=== PATIENT | male | born 1995 | race Caucasian/White ===

== ENCOUNTER 2016-10-20 19:16 | Emergency (ER) | payer OTHER ==
[~2016-10-20] VITALS: Ht 182.9 cm; Wt 63.5 kg
[2016-10-20 19:18] VITALS: BP 127/78; PULSE 63; RESP 14; TEMP 98.5; O2SAT 100
[2016-10-20] MEDS ORDERED: IBUPROFEN 800 MG TAB PO ONE (19:45)
[2016-10-20] MEDS ORDERED: TRAM50TA PO (19:48)
[2016-10-20] MEDS ORDERED: PERI0.126 SWISH-SPIT (19:48)
[2016-10-20] MEDS ORDERED: IBUP-232 PO (19:48)
--- NOTE | 2016-10-20 19:48 | PD ---
HPI Chief Complaint: Oral / Dental Pain or Problem Time Seen by Provider: 19:46 Travel History International Travel<30 days: No Contact w/Intl Traveler<30days: No Traveled to known affect area: No History of Present Illness HPI 21-year-old male presents to emergency department for evaluation tooth pain. Patient states the he chipped his tooth several months ago and is painful. States he does not have a dentist locally as he is visiting from [place]. Denies any trauma. No fever or chills. Pain is a constant, throbbing, 8 out of 10. Patient has no difficulty eating and drinking. He has no other symptoms to report. PFSH Past Medical History Medical History: Denies Significant Hx Tetanus Vaccination: < 5 Years Influenza Vaccination: No Past Surgical History Surgical History: No Previous Surgery Social History Alcohol Use: Yes (6 beers on the weekends) Tobacco Use: No Substance Use: No Allergies-Medications (Allergen,Severity, Reaction): Coded Allergies: No Known Allergies (Unverified , 10/20/16) Reported Meds & Prescriptions Reported Meds & Active Scripts Active Tramadol (Tramadol HCl) 50 Mg Tab 50 Mg PO Q8H PRN Ibuprofen 600 Mg Tab 600 Mg PO Q8HR PRN Peridex Liq (Chlorhexidine Gluconate (Mouth) Liq) 0.12% Soln 15 Ml SWISH-SPIT BID 14 Days Review of Systems Except as stated in HPI: all other systems reviewed are Neg Physical Exam Narrative GENERAL: Well-nourished, well-developed male patient in no acute distress SKIN: Focused skin assessment warm/dry. HEAD: Normocephalic. No erythema or edema EYES: No scleral icterus. No injection or drainage. ENT: Mucosa pink and moist. No erythema or exudates. No uvular edema. No uvular , palatal, or tonsillar deviation. Airway patent. Nasal turbinates appear normal without nasal blood, purulent drainage or septal hematoma. DENTAL: No loose teeth. The left maxillary second bicuspid is chipped. There is mild gingival erythema. No edema. No appreciable abscess.. No malocclusion. NECK: Supple, trachea midline. No JVD or lymphadenopathy. CARDIOVASCULAR: Regular rate and rhythm without murmurs, gallops, or rubs. RESPIRATORY: Breath sounds equal bilaterally. No accessory muscle use. Data Data Last Documented VS Vital Signs Date Time Temp Pulse Resp B/P Pulse Ox O2 Delivery O2 Flow Rate FiO2 10/20/16 19:18 98.5 63 14 127/78 100 Room Air Orders Ibuprofen (Motrin) (10/20/16 19:45) MDM Medical Decision Making Medical Screen Exam Complete: Yes Emergency Medical Condition: Yes Medical Record Reviewed: Yes Differential Diagnosis Dentalgia versus infiltrate versus pulpitis versus gingivitis Narrative Course 21-year-old male presents to the emergency department for evaluation dental pain. Patient is treated for pain here. Patient does not have appreciable abscess however he does have a chipped tooth. Patient is advised to seek dental evaluation. He'll be provided pain control for outpatient. He agrees to return immediately with any acute worsening of symptoms. Diagnosis Primary Impression: Dentalgia Additional Impression: Chipped tooth Qualified Code: S02.5XXA - Closed fracture of tooth, initial encounter Referrals: Dentist Primary Care Physician Patient Instructions: Dental Caries (GEN), General Instructions Additional Instructions: Your tooth will likely hurt until you get it fixed Seek dental evaluation Return immediately with any acute worsening symptoms Med/Other Pt SpecificInfo: Prescription(s) given Scripts Tramadol 50 Mg Tab50 Mg PO Q8H PRN (PAIN GREATER THAN 5) #12 TAB Ref 0 Prov:Yissel Chauhan 10/20/16 Ibuprofen 600 Mg [id number] Mg PO Q8HR PRN (PAIN) #30 TAB Ref 0 Prov:Yissel Chauhan 10/20/16 Chlorhexidine Gluconate (Mouth) Liq (Peridex Liq)0.12% Soln15 Ml SWISH-SPIT BID 14 Days Ref 0 Prov:Yissel Chauhan 10/20/16 Disposition: 01 DISCHARGE HOME Condition: Stable Yissel Chauhan Oct 20, 2016 19:48
== END 2016-10-20 20:15 | disposition home or self-care (01) ==
LOC: NEPD 19:16
DX: S02.5XXA Fracture of tooth (traumatic), initial encounter for closed fracture (principal); X58.XXXA Exposure to other specified factors, initial encounter
CPT/HCPCS: 99283